=== PATIENT | male | born 1945 | race African-American/Black ===

== ENCOUNTER 2020-01-02 11:58 | Emergency (ER) | payer OTHER, MEDICARE ==
--- NOTE | 2020-01-02 13:00 | ER Document Report ---
ED General - General Chief Complaint: Shortness Of Breath Stated Complaint: SHORTNESS OF BREATH Time Seen by Provider: 01/02/20 13:00 Primary Care Provider: MARIA,IZA [Primary Care Provider] - Follow up as needed - HPI Patient complains to provider of: SOB Notes: With a lengthy history of congestive heart failure presents with increasing shortness of breath and decreased exercise tolerance over the last 2 days. Patient lives with his sister who is COVID positive as well. Denies fever nausea vomiting or other infectious symptoms. Patient was short of breath and weak he is having difficult to take care of himself. - Related Data Allergies/Adverse Reactions: No Known Allergies Allergy (Unverified 04/03/13 16:38) Past Medical History - Social History Smoking Status: Current Every Day Smoker Chew tobacco use (# tins/day): No Frequency of alcohol use: None Drug Abuse: None Family History: Reviewed & Not Pertinent - Past Medical History Cardiac Medical History: Reports: Hx Congestive Heart Failure, Hx Hypertension Pulmonary Medical History: Denies: Hx Tuberculosis GI Medical History: Reports: Hx Gastroesophageal Reflux Disease Psychiatric Medical History: Reports: Hx Depression Past Surgical History: Reports: Hx Cardiac Surgery - bypass x1 Review of Systems - Review of Systems Notes: REVIEW OF SYSTEMS: CONSTITUTIONAL: -fevers, -chills EENT: -eye pain, -difficulty swallowing, -nasal congestion CARDIOVASCULAR: -chest pain, -syncope. RESPIRATORY: Positive shortness of breath GASTROINTESTINAL: -abdominal pain, -nausea, -vomiting, -diarrhea GENITOURINARY: -dysuria, -hematuria MUSCULOSKELETAL: -back pain, -neck pain SKIN: -rash or skin lesions. HEMATOLOGIC: -easy bruising or bleeding. LYMPHATIC: -swollen, enlarged glands. NEUROLOGICAL: -altered mental status or loss of consciousness, -headache, - neurologic symptoms PSYCHIATRIC: -anxiety, -depression. ALL OTHER SYSTEMS REVIEWED AND NEGATIVE. Physical Exam - Vital signs Vitals: Temp Pulse Resp BP Pulse Ox 98.0 F 64 20 102/64 97 01/02/20 12:01/02/20 12:01/02/20 12:01/02/20 12:01/02/20 12:09 - Notes Notes: Physical exam PHYSICAL EXAMINATION: GENERAL: Well-appearing, well-nourished and in moderate acute distress. HEAD: Atraumatic, normocephalic. EYES: Pupils equal round, sclera anicteric, conjunctiva are normal. ENT: Surgical mask in place. NECK: Normal range of motion, LUNGS: No respiratory Distress, normal chest rise EXTREMITIES: Normal range of motion, No cyanosis. NEUROLOGICAL: Cranial nerves grossly intact. Normal speech, PSYCH: Normal mood, normal affect. SKIN: Warm, Dry, Course - Re-evaluation Re-evalutation: 01/02/20 14:28 74-year-old male presents with increasing shortness of breath weakness and fatigue for 2 days. Patient lives with his COVID positive sister. Patient does have extensive medical history including CHF. Patient is tachypneic now not requiring supplemental oxygen. But concerned the patient has very little reserve. COVID test pending at this time. Admit to the hospital for close monitoring. - Vital Signs Vital signs: Temp Pulse Resp BP Pulse Ox 98.0 F 64 20 102/64 97 01/02/20 12:30 01/02/20 12:09 01/02/20 12:09 01/02/20 12:09 01/02/20 12:30 - Laboratory Result Diagrams: 01/02/20 13:09 01/02/20 13:09 Laboratory results interpreted by me: 01/02/20 01/02/20 13:09 13:09 Hgb 12.7 L RDW 15.4 H BUN 26 H Creatinine 1.60 H Est GFR ( Amer) 51 L Est GFR (MDRD) Non-Af 42 L Discharge - Discharge Clinical Impression: SOB (shortness of breath) Condition: Stable Disposition: ADMITTED INPATIENT Admitting Provider: Quiana (Hospitalist) Unit Admitted: Medical Floor [facility]errals: [facility] [[facility]] - Follow up as needed
--- NOTE | 2020-01-02 13:34 | RADIOLOGY REPORT (SQ) ---
EXAM DESCRIPTION: CHEST SINGLE VIEW IMAGES COMPLETED DATE/TIME: 01/02/2020 1:00 pm REASON FOR STUDY: bed 6 difficulty breathing COMPARISON: 04/03/2013 EXAM PARAMETERS: NUMBER OF VIEWS: One view. TECHNIQUE: Single frontal radiographic view of the chest acquired. RADIATION DOSE: NA LIMITATIONS: None. FINDINGS: LUNGS AND PLEURA: Slight atelectasis or scarring at the lung bases. No acute pulmonary c onsolidation. No pneumothorax or pleural effusion. MEDIASTINUM AND HILAR STRUCTURES: No masses. Contour normal. HEART AND VASCULAR STRUCTURES: Heart normal in size. Normal vasculature. BONES: No acute findings. HARDWARE: Prior anterior median sternotomy. OTHER: No other significant finding. IMPRESSION: 1. No acute pulmonary consolidation. Slight scarring or atelectasis at the lung bases. TECHNICAL DOCUMENTATION: JOB ID: [id number] 2010 [employer]- All Rights Reserved Reading location - IP/workstation name: [email or web address]
[2020-01-02 13:37] LABS: ABSOLUTE EOSINOPHILS # (AUTO) 0.1 10^3/uL (0.0-0.6); ABSOLUTE LYMPHOCYTES (AUTO) 1.1 10^3/uL (0.5-4.7); ABSOLUTE MONOCYTES (AUTO) 0.3 10^3/uL (0.1-1.4); ABSOLUTE NEUT (AUTO) 2.6 10^3/uL (1.7-8.2); BASOPHILS % (AUTO) 0.6 % (0-2); EOSINOPHILS % (AUTO) 2.1 % (0-6); HEMOGLOBIN 12.7 g/dL (13.5-17.0); LYMPHOCYTES % (AUTO) 26.4 % (13-45); MEAN CORPUSCULAR HEMOGLOBIN 27.7 pg (27.0-33.4); MEAN CORPUSCULAR HGB CONC 32.6 g/dL (32.0-36.0); MEAN CORPUSCULAR VOLUME 85 fl (80-97); MONOCYTES % (AUTO) 8.1 % (3-13); PLATELET COUNT 283 10^3/uL (150-450); RED BLOOD COUNT 4.58 10^6/uL (4.35-5.55); RED CELL DISTRIBUTION WIDTH 15.4 % (11.5-14.0); SEGMENTED NEUTROPHILS % (AUTO) 62.8 % (42-78); TOTAL CELLS COUNTED % (AUTO) 100 %; WHITE BLOOD COUNT 4.1 10^3/uL (4.0-10.5)
[2020-01-02 13:53] LABS: ALBUMIN 3.8 g/dL (3.5-5.0); ALKALINE PHOSPHATASE 117 U/L (38-126); ANION GAP 8 (5-19); ASPARTATE AMINO TRANSFERASE 30 U/L (17-59); BILIRUBIN,TOTAL 0.6 mg/dL (0.2-1.3); BLOOD UREA NITROGEN 26 mg/dL (7-20); CALCIUM 8.5 mg/dL (8.4-10.2); CARBON DIOXIDE 28 mmol/L (22-30); CHLORIDE 103 mmol/L (98-107); CREATINE KINASE 80 U/L (55-170); GLUCOSE 101 mg/dL (75-110); POTASSIUM 3.6 mmol/L (3.6-5.0); TOTAL PROTEIN 7.1 g/dL (6.3-8.2)
[2020-01-02 14:05] LABS: CREATINE KINASE MB 0.54 ng/mL (<4.55); TROPONIN I 0.017 ng/mL
[2020-01-02 15:50] LABS: FREE T3 3.5 pg/mL (2.77-5.27); FREE T4 (FREE THYROXINE) 1.02 ng/dL (0.78-2.19)
[2020-01-02 16:03] LABS: THYROID STIMULATING HORMONE 1.5 uIU/mL (0.47-4.68)
[2020-01-02 17:14] VITALS: BP 133/74
--- NOTE | 2020-01-03 07:39 | EKG REPORT ---
SEVERITY:- ABNORMAL ECG - SINUS BRADYCARDIA NONSPECIFIC INTRAVENTRICULAR CONDUCTION DELAY NONSPECIFIC ST-T CHANGES DIFFUSE, ERIC NEW COMPARED TO 04/04/13 EKG : Confirmed by: Cr Moreau MD 03-Jan-2020 07:38:58
== END 2020-01-02 18:00 | disposition home or self-care (01) ==
LOC: ER 11:58
DX: U07.1 COVID-19 (principal); R53.1 Weakness; R53.83 Other fatigue; R06.02 Shortness of breath; I11.0 Hypertensive heart disease with heart failure; I50.9 Heart failure, unspecified; F17.200 Nicotine dependence, unspecified, uncomplicated; Z95.1 Presence of aortocoronary bypass graft
CPT/HCPCS: 93005; 99285; 96372; 36415; 84439; 82553; 82550; 84443; 85025; 87635; 80053; 84484; 84481; 83880; 71045; 93010; C9803